=== PATIENT | male | born 1955 | race Caucasian/White ===

== ENCOUNTER 2018-03-30 23:33 | Inpatient (IN) | payer OTHER ==
[~2018-03-30] VITALS: Ht 172.7 cm; Wt 84.4 kg
[2018-03-30 23:36] VITALS: BP_SYST 130
--- NOTE | 2018-03-30 23:42 | NUR ---
Patient triaged and placed in waiting room. VSS and patient appears in no acute distress at this time. Accompanied by , awaiting available bed, and MD notified of need for MSE.
--- NOTE | 2018-03-30 23:55 | NUR ---
Patient to ER bed 8 to gown for evaluation. Side rails up. Report given to BELTRAN WAGNER.
--- NOTE | 2018-03-31 | NUR ---
Pt in bed 8 with c/o mouth swelling and diarrhea x [address] Srivastava aware.
[2018-03-31] MEDS ORDERED: DEXAMETHASONE SOD PHOSPHATE 10 MG/ML VIAL IVP ONE (00:45)
[2018-03-31] MEDS ORDERED: DIPHENHYDRAMINE INJ 50 MG/ML VIAL IVP ONE (00:45)
--- NOTE | 2018-03-31 00:45 | NUR ---
# 20 gauge angiocath placed to RAC. Use of asceptic technique. Opsite placed over site. Blood return noted. Blood for lab drawn from site. Flushed with 10 cc of normal saline. No evidence of infiltration noted. Patient tolerated well.
--- NOTE | 2018-03-31 01:00 | NUR ---
MEDICATION GIVEN PER MD ORDERS. TOLERATED WELL.
[2018-03-31 01:04] LABS: BASOPHILS % (AUTO) 0.4 % (0.0-2.0); EOSINOPHILS # (AUTO) 0.2 K/uL (0.0-0.4); EOSINOPHILS % (AUTO) 2.5 % (0.0-4.0); HEMATOCRIT 46.5 % (36-54); HEMOGLOBIN 15.7 g/dL (14.0-18.0); LYMPHOCYTES # (AUTO) 1.6 K/uL (1.0-5.5); LYMPHOCYTES % (AUTO) 25.5 % (20.5-51.5); MEAN CORPUSCULAR HEMOGLOBIN 30 pg (27-31); MEAN CORPUSCULAR HGB CONC 34 % (32-36); MEAN CORPUSCULAR VOLUME 88 fL (79.0-98.0); MONOCYTES # (AUTO) 0.7 K/uL (0.0-1.0); MONOCYTES % (AUTO) 11.3 % (1.7-9.3); NEUTROPHILS % (AUTO) 60.3 % (40.0-70.0); PLATELET COUNT (AUTO) 323 K/uL (130-430); RED BLOOD CELL COUNT(AUTO) 5.32 MIL/uL (4.2-6.2); WHITE BLOOD COUNT (AUTO) 6.5 K/uL (4.8-10.8)
[2018-03-31 01:23] LABS: CALCIUM 9.4 mg/dL (8.4-11.0); CREATININE 1.66 mg/dL (0.55-1.30); POTASSIUM 3.1 mmol/L (3.5-5.1)
[2018-03-31 01:27] LABS: C-REACTIVE PROTEIN QUANT 2.4 mg/dL (0-0.5); TOTAL BILIRUBIN 0.6 mg/dL (0.0-1.0)
[2018-03-31 01:54] LABS: ERYTHROCYTE SEDIMENTATION RATE 10 MM/HR (0-15)
--- NOTE | 2018-03-31 02:06 | NUR ---
NO DECREASE IN SWELLING, NO OTHER COMPLAINTS OFFERED. DR EVANS AWARE.
--- NOTE | 2018-03-31 02:11 | NUR ---
Patient is full code. Paperwork in chart.
[2018-03-31] MEDS ORDERED: NACL 0.9% 1,000 ML IV ONE (02:15)
[2018-03-31] MEDS ORDERED: POTASSIUM CHLORIDE 20 MEQ TAB.PRT.SR PO ONE (02:15)
[2018-03-31] MEDS ORDERED: LISI40TA4 PO (02:31)
[2018-03-31] MEDS ORDERED: DILT240C54 PO (02:31)
--- NOTE | 2018-03-31 02:31 | NUR ---
Medication reconciliation completed with information provided by PATIENT. Any prior medication reconciliation on file was reviewed and corrected.
--- NOTE | 2018-03-31 02:32 | NUR ---
Patient will be admitted to care of Dr. Ramos. Admitted to Telemetry unit. Will go to room 101 B. Belongings list completed. Summary report printed. Report will be given at bedside.
--- NOTE | 2018-03-31 02:55 | NUR ---
ADMISSION NOTE Received patient from ER via jacquelyn, received report from BELTRAN PRECIADO. Patient admitted with diagnosis of ANGIONEUROTIC EDEMA. Patient oriented to hospital routine, call light, toileting and safety-patient verbalized understanding. Addendum: 03/31/18 at 0258 by Divine Tyson RN ADMISSION NOTE Received patient from ER via jacquelyn, received report from BELTRAN WAGNER Patient admitted with diagnosis of ANGIONEUROTIC EDEMA. Patient oriented to hospital routine, call light, toileting and safety-patient verbalized understanding.
[2018-03-31 03:00] VITALS: BP_SYST 131
--- NOTE | 2018-03-31 03:00 | NUR ---
Opening note Received patient awake, alert, and oriented x4. No s/s of distress noted. Plan of care reviewed and patient oriented to call light. Bed is down, locked, side rails up x2, call light within reach. Bed alarm on.
[2018-03-31] MEDS: DIPHENHYDRAMINE INJ 50 MG/ML VIAL IVP SCH ×3 (03:19→15:15)
--- NOTE | 2018-03-31 04:59 | NUR ---
Rounds Patient is resting in bed with eyes closed. No s/s of distress. Bed is down, locked, side rails up x2, call light within reach. Bed alarm on. Will continue to monitor.
--- NOTE | 2018-03-31 06:34 | NUR ---
Closing note Patient is resting in bed and snoring. No s/s of respiratory distress. Breathing is even and unlabored. IV is intact and saline locked. Patient has a steady gait. All needs met and anticipated by [facility] shift nurses. Bed is down, locked, side rails up x2, call light within reach. Bed alarm on. Will endorse to day shift nurse.
--- NOTE | 2018-03-31 07:50 | NUR ---
OPENING NOTE: MORNING REPORT WAS TAKEN FROM GOVERNMENT INSTRUCTOR NURSE. PATIENT IS AWAKE WITH NO SIGNS OF DISTRESS. PATIENT HAS LIPS SWOLLEN BUT SAYS THAT HE FEELS LIKE THEY ARE GOING DOWN. PATIENT'S THROAT AND TONGUE ARE NOT SWOLLEN. PATIENT IS NOT COMPLAINING OF SHORTNESS OF BREATH AND IS ON ROOM AIR. PATIENT HAD TO GO TO RESTROOM. ASSISTED PATIENT TO RESTROOM. PATIENT HAS STABLE GAIT. EDUCATED PATIENT ON IMPORTANCE OF BED ALARM BUT PATIENT REFUSED. EDUCATED PATIENT ON HOW TO USE THE BED TO LOWER LEGS. BED IS IN LOWEST POSITION WITH CALL LIGHT IN REACH. WILL CONTINUE TO MONITOR.
[2018-03-31 08:06] VITALS: BP_SYST 124
[2018-03-31] MEDS ORDERED: FAMOTIDINE 20 MG TABLET PO SCH (09:00)
--- NOTE | 2018-03-31 09:25 | NUR ---
NOTE: PATIENT IS RELAXING IN BED WITH NO SIGNS OF DISTRESS. PATIENT WAS ABLE TO SWALLOW PILL OKAY. IV IS PATENT AND GAVE MED THROUGH IV. PATIENT STATES HE FEELS A LITTLE DEHYDRATED ENRAGED PATIENT TO DRINK FLUIDS. WILL CONTINUE TO MONITOR.
[2018-03-31 11:23] VITALS: BP_SYST 134
--- NOTE | 2018-03-31 13:05 | NUR ---
NOTE: PATIENT IS RELAXING IN BED WITH NO SIGNS OF DISTRESS. PATIENT'S LIPS LOOK LIKE THEY ARE GOING DOWN FROM THIS MORNING. PATIENT STATES THAT IT IS EASIER FOR HIM TO DRINK. WILL CONTINUE TO MONITOR.
--- NOTE | 2018-03-31 15:15 | NUR ---
NOTE: GAVE PATIENT BENADRYL. PATIENT'S LIPS LOOK LIKE THEY ARE GOING DOWN MORE. PATIENT NOT COMPLAINING OF PAIN OR SHORTNESS OF BREATH. WILL CONTINUE TO MONITOR.
[2018-03-31 15:19] LABS: CALCIUM 9.3 mg/dL (8.4-11.0); CREATININE 1.38 mg/dL (0.55-1.30)
[2018-03-31 15:21] VITALS: BP_SYST 130
[2018-03-31] MEDS ORDERED: FAMO20TA8 PO (17:04)
[2018-03-31] MEDS ORDERED: DIPH25TA62 PO (17:05)
[2018-03-31 18:11] VITALS: BP_SYST 130
--- NOTE | 2018-03-31 18:46 | NUR ---
D/C Patient Patient given medication reconciliation form and D/C instructions. Exit Care provided. Patient verbalized understanding. MD discussed with patient the results and treatment provided. Ambulatory with steady gait for discharge to home. Patient in stable condition, ID band removed. IV catheter removed, intact and dressing applied, no active bleeding. Rx of Pepcid and Benadryl given. All belongings sent with patient. Patient refused to be wheeled out to front and walked with family instead.
== END 2018-03-31 18:46 | disposition home or self-care (01) | DRG 683 ==
LOC: SED 23:33 → STU 03-31 02:26
PROVIDERS: ADMIT Internal Medicine; ATTEND Internal Medicine
DX: N17.9 Acute kidney failure, unspecified (principal); E87.0 Hyperosmolality and hypernatremia; T78.3XXA Angioneurotic edema, initial encounter; I10 Essential (primary) hypertension; E87.6 Hypokalemia; E86.0 Dehydration; Z79.899 Other long term (current) drug therapy
CPT/HCPCS: 36415; 80048; 80053; 83735-TC; 85025; 85651-TC; 86140; 96361; 96374; 96375; 99285; J1100; J1200; J7030